=== PATIENT | male | born 1975 | race Caucasian/White ===

== ENCOUNTER 2018-09-29 13:53 | Outpatient (CLI) | payer OTHER ==
[2018-09-29 14:28] VITALS: BP 110/60
--- NOTE | 2018-09-29 14:28 | CONSULTATION NOTE ---
Information from patient questionnaire entered by Lacie Zamora. I have reviewed and concur with the information entered by Lacie Zamora. This document represents the service I personally performed and the decisions made by me, Celso Espinoza MD, [facility]. - History of Present Illness Chief Complaint: Snoring, Excessive daytime sleepiness, Fatigue I had the pleasure of seeing SULEMA THEODORE today regarding the possibility of him having a sleep disorder. His current complaints are snore and excessive daytime sleepiness for the past 4 - 5 years. The patient tells me that he normally goes to bed around 9:00 pm, and it takes him approximately 120 minutes to fall asleep. He has been told that he snores loudly and irregularly at night. He has been observed to stop breathing in his sleep. His bed partner can still sleep in the same bed. He can recall waking up on the average of 1 times during the night. Most of the time he wakes up because of having to use the restroom or disomfort. There is sometimes tossing and turning in his sleep. Generally there is no recollection of dreams. He usually wakes up at 4:40am (8 am on weekends) and does not feel refreshed. He usually does not have a morning headache. During the day he complains of feeling sleepy and fatigued. He has never fallen asleep while driving nor has any accident due to sleepiness. He tries not to nap during the day. If he naps, upon falling asleep during the day he denies having vivid dreams. There is no somniloquy (sleep talking) or somnambulism (sleep walking). He [reports][denies] having impaired concentration during the day. [place] Sleepiness Scale Score: 6 - Past Medical History Past Medical History: Other (high cholesterol) - Allergies/Home Medications Allergies and home medications reviewed: Yes - Social History The patient's occupation is a [employer]. Patient is and lives in [place]. Smoked in the past 12 months: Yes Cigarettes per day (20/pack): 10 Years of smokin Quit Date: 03/2018 Smoking Pack Years: 7.5 Alcohol use: Yes Amount and frequency: 3 drinks on weekends Caffeine use: Yes Amount and frequency: 6-8 drinks/day - Family History Family history of sleep disordered breathing: Yes Family Hx Sleep Apnea: Mother: Snoring, Father: Sleep apnea - Treated - Review of Systems Weight gain over past 5 years: 15 Weight loss over past 5 years: 15 Cardiovascular: denies: high blood pressure, palpitations, chest pain, irregular heart rate or pulse, leg or foot swelling, have to sleep sitting up, other: Respiratory: denies: shortness of breath, wheeze, sputum production, chronic cough, other: Gastrointestinal: denies: heartburn, difficulty swallowing, nausea, vomitting, diarrhea, abdominal pain, other: Urinary: denies: incontinence, frequency, urgency, impotence, other: Neurological: denies: headaches, seizure, head trauma, disorientation, speech dysfunction, gait or balance problems, fainting or unconsciousness, other: Psychiatric: denies: Attention Deficit Hyperactivity, anxiety, depression, mood disorder, claustrophobia, other: Ear/Nose/Throat: reports: nasal congestion, sinus problems, wisdom teeth removed Endocrine: denies: thyroid disease, history of goiter, sluggishness, too hot or cold, excessive thirst, increased appetite, increased urination, unexplained weakness, other: Musculoskeletal: denies: joint pain, neck pain, back pain, joint swelling, muscle pain or cramping, mobility problems, other: Immunologic: denies: sneezing, rash, itching, allergies to food or environment, other: - Physical Examination Vital signs obtained and documented by: Dr. Espinoza Blood Pressure: 110/60 Cuff size: long Heart Rate: 74 O2 Saturation: 97 Height: 5 ft 10 in Weight (kg): 99.798 kg Body Mass Index: 31.6 BMI Classification: Class 1 Neck circumference: 16.25 Mood/affect: normal HEENT: No craniofacial malformation Nostrils: patent to airflow Turbinates: normal Septum: midline Mouth and throat: narrow oropharynx (Mallampati Class II) Soft palate: long Hard palate: normal Uvula: normal Tongue: enlarged in size with teeth fam on lateral edges Tonsils: small Chin and jaw: normal size and position Neck: normal w/o lymphadenopathy or thyromegaly Heart: regular rate and rhythm Lungs: clear bilaterally Abdomen: soft, non-tender Extremities: no edema or clubbing Neurologic: intact, no focal deficits - Impression 1. Suspected Obstructive Sleep Apnea-Hypopnea Syndrome, as suggested by a history of loud and irregular snoring, observed cessation of breath while asleep, gasping or choking in sleep, unrefreshed sleep, cognitive impairment, and excessive daytime sleepiness. Narrow oropharynx and obesity are common predisposing factors for obstructive sleep apnea-hypopnea syndrome. I recommend proceeding to polysomnography to confirm the diagnosis and to assess severity. If the patient has significant sleep disordered breathing, a manual CPAP titration study will also be performed to find the optimal treatment pressure. I informed the patient of what the sleep studies involve and after some di scussion, obtained agreement to proceed. The pathophysiology of obstructive sleep apnea-hypopnea syndrome was discussed with the patient and health risks of cardiovascular and cerebrovascular disease if not treated. 2. 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 His true circadian rhythm is that of the weekends where he goes to bed near midnight and gets up at 8 am. Therefore, trying to go to bed early at 9 pm on week nights causes him to lie awake for 2 hours. By the time he has to get up at 4:40 am, he would only have 5:40 hours of sleep. The solution is to keep a regular wake time which the patient says he is not going to do (cannot really blame him for not wanting to get up at 4:40 am on the weekends). - Plan Schedule polysomnography +/- manual CPAP titration study. Avoid long distance driving or driving when feeling sleepy. Avoid alcohol, sedative and muscle relaxant around bedtime. Attempt to lose weight. Review instructions provided by trained office staff on how to prepare for the sleep study. Return for follow-up after sleep study completed. I spent 100% of this 15 minute visit face to face with the patient with greater than 50% of this was spent time counseling the patient and coordination of care.
== END 2018-09-29 13:54 | disposition home or self-care (01) ==
LOC: SC 13:53
PROVIDERS: ATTEND Internal Medicine Pulmonary Disease
DX: R06.83 Snoring (principal); R06.81 Apnea, not elsewhere classified; G47.8 Other sleep disorders; R41.89 Other symptoms and signs involving cognitive functions and awareness; G47.10 Hypersomnia, unspecified; G47.21 Circadian rhythm sleep disorder, delayed sleep phase type
CPT/HCPCS: 99203; 99212

== ENCOUNTER 2018-10-21 19:12 | Outpatient (CLI) | payer OTHER | END 2018-10-21 19:13 | disposition home or self-care (01) | LOC: SC 19:12 | PROVIDERS: ATTEND Internal Medicine Pulmonary Disease | DX: G47.33 Obstructive sleep apnea (adult) (pediatric) (principal); G47.61 Periodic limb movement disorder | CPT/HCPCS: 95811 ==

== ENCOUNTER 2018-11-24 09:51 | Outpatient (CLI) | payer OTHER ==
--- NOTE | 2018-11-24 10:36 | SLEEP CARE CONSULTATION ---
Information from patient questionnaire entered by Lacie Zamora. I have reviewed and concur with the information entered by Lacie Zamora. This document represents the service I personally performed and the decisions made by me, Celso Espinoza MD, [facility]. History of Present Illness Initial [place] Sleepiness Scale score: 6 Current [place] Sleepiness Scale score: 8 Additional HPI information: HPI: Mr. Herman returned for follow up of the split-night sleep study he had on 10/21/2018. The polysomnography shows the following: The quality of the study is good. CPAP was initiated 162.8 minutes into the study and titrated up from 5 cmH2O and titrated up to CPAP at 13 cmH2O. DIAGNOSTIC: The patient had normal sleep efficiency. The sleep architecture was abnormal for sleep fragmentation and reduced amount of time spent in REM sleep. Respiratory monitoring showed severe obstructive sleep apnea-hypopnea (AHI = 57.2) associated with frequent arousals, oxyhemoglobin desaturation and moderate hypoxia (angie oxygen saturation of 72%). The respiratory events occurred mainly during supine sleep. Snoring was loud in intensity. There was no significant periodic limb movement of sleep. THERAPEUTIC: CPAP at 12 cmH2O appeared to be optimal (AHI of 1,8 per hour on the pressure). There was supine REM sleep on the pressure. Oxygen saturation was minimally low. Lower CPAP settings appeared adequate as well.. The patient tolerated positive airway pressure therapy well. The patients sleep efficiency was slightly reduced due to frequent awakenings at the beginning of the treatment. The sleep architecture was otherwise normal. There was mild periodic limb movement of sleep not associated with sleep fragmentation. Cardiac rhythm was normal sinus rhythm without significant arrhythmia. No abnormal behavior (parasomnia) observed during the night. The patient was informed of these findings. I explained to him the pathophysiology behind obstructive sleep apnea. We then spent quite a bit of time discussing different treatment options. For mild obstructive sleep apnea, surgery and oral appliance are alternatives to nasal CPAP therapy but in moderate or severe cases, nasal CPAP is the most effective and reliable treatment. Weight loss in an obese individual is strongly recommended. After some discussion, he opted to go with the nasal CPAP therapy. I explained to him how CPAP machine works and what to expect when using the machine. He is encouraged to use CPAP every night especially in the first 2 to 3 nights in order to get used to it. He should call his CPAP supplier or me to discuss any mechanical problem that may occur. If he snores or feels like he is not getting enough air from the machine, he should notify me and I will increase the pressure. Allergies and Home Medications Drug allergies reviewed: Yes Home medication list reviewed: Yes Review of Systems Review of systems same as previous: Yes Physical Exam Weight: 220 lb Impression and Plan IMPRESSION: 1. Obstructive Sleep Apnea-Hypopnea Syndrome, severe, associated with moderate hypoxemia and sleep fragmentation. Obviously this is the cause of the patients symptoms of unrefreshed sleep, and excessive daytime sleepiness. As mentioned above, the patient will be started on autoCPAP set at 8 - 12 cmH2O. I anticipate good treatment compliance. PLAN: 1. Prescription made for an autoCPAP, heated humidifier, and related supplies. 2. Attempt to lose weight and avoid alcohol consumption near bedtime. 3. The patient is again cautioned about driving until his sleepiness completely resolves on the CPAP therapy. 4. Return in six weeks for follow up. I will assess his response and compliance at that time. I spent 100% of the 20 minute visit [id number] with the patient with greater than 50% of this was spent time counseling the patient and coordination of care.
== END 2018-11-24 09:52 | disposition home or self-care (01) ==
LOC: SC 09:51
PROVIDERS: ATTEND Internal Medicine Pulmonary Disease
DX: G47.33 Obstructive sleep apnea (adult) (pediatric) (principal)
CPT/HCPCS: 99212; 99213

== ENCOUNTER 2019-03-22 12:44 | Outpatient (CLI) | payer OTHER ==
--- NOTE | 2019-03-22 13:19 | SLEEP CARE CONSULTATION ---
Information from patient questionnaire entered by Lacie Zamora. I have reviewed and concur with the information entered by Lacie Zamora. This document represents the service I personally performed and the decisions made by me, Celso Espinoza MD, [facility]. History of Present Illness Previous diagnosis: Severe, Obstructive Sleep Apnea-Hypopnea Syndrome AHI: 57.2 Reason for follow up: first compliance Equipment type: CPAP Prior sleep studies: Yes Year and Where: 2018 [facility] HPI additional information: HPI: Mr. Herman returned today for follow up of nasal CPAP therapy. He was diagnosed to have very severe obstructive sleep apnea-hypopnea syndrome. The patient wears a Respironics DreamWear nasal cushion mask (he recently switched from a full face mask). He reports using the device nightly and all through the night. The compliance report shows usage in 26 nights out of the past 30 nights, averaging 5.1 hours a night. The > 4 hour compliance rate for 12/3001/28/19 is 70%. He complained of dryness. He thinks that the pressure of 8 12 cmH2O is comfortable. On the CPAP therapy he notices improvement in his sleep quality, and that he wakes up feeling fresher in the morning and more awake/alert during the day. His [place] Sleepiness Scale score is 2 (was 6). His notices no snore at all. The average residual AHI is 1.9; and average time in large leak per day is 4 minutes. The 90th percentile pressure is 9.8 cmH2O. CPAP Compliance Data - Data Reviewed with Patient Average duration of nightly device use: 5h 8m Compliance rate %: 70 Current pressure setting (cmH2O): 8-12 Humidity settin Heated hose settin Average residual AHI: 3.5 Average large leak: 44m 35s Subjective Patient concerns: reports: dry mouth, nose, throat Current pressure setting perceived as: comfortable Initial [place] Sleepiness Scale score: 6 Current [place] Sleepiness Scale score: 2 Allergies and Home Medications Drug allergies reviewed: Yes Home medication list reviewed: Yes (Zocor, Viagra) Review of Systems Review of systems same as previous: Yes Physical Exam Height: 5 ft 10 in Weight: 222 lb Weight change since last visit: +4 Body Mass Index: 31.8 BMI Classification: Obesity Class 1 Impression and Plan IMPRESSION: 1. Obstructive Sleep Apnea-Hypopnea Syndrome, very severe (AHI was 57.2) with the patient doing well on nasal CPAP therapy. He has good compliance and significant clinical improvement. The current pressure appears effective and comfortable. The Respironics DreamWear nasal cushion mask fits well. Overall, he is very satisfied with treatment and plans to continue with it long-term. No adjustment is necessary today. PLAN: 1. Continue with autoCPAP set at 8 - 12 cmH2O. 2. Try to lose weight 3. Try ResMed N30i mask. 4. Return in one year for follow up or earlier if there is any problem with the treatment. I spent 100% of this visit face to face with the patient with greater than 50% of this was spent time counseling the patient and coordination of care.
== END 2019-03-22 12:45 | disposition home or self-care (01) ==
LOC: SC 12:44
PROVIDERS: ATTEND Internal Medicine Pulmonary Disease
DX: G47.33 Obstructive sleep apnea (adult) (pediatric) (principal); E66.9 Obesity, unspecified; Z68.31 Body mass index [BMI] 31.0-31.9, adult
CPT/HCPCS: 99212; 99213

== ENCOUNTER 2019-03-22 16:24 | Outpatient (CLI) | payer OTHER | END 2019-03-22 16:25 | disposition critical access hospital (66) | LOC: EMS 16:24 | PROVIDERS: ATTEND Surgery | DX: S81.032A Puncture wound without foreign body, left knee, initial encounter (principal); W32.0XXA Accidental handgun discharge, initial encounter; Y92.008 Other place in unspecified non-institutional (private) residence as the place of occurrence of the external cause | CPT/HCPCS: A0425; A0427 ==

== ENCOUNTER 2019-03-22 16:48 | Emergency (ER) | payer OTHER ==
[2019-03-22] MEDS ORDERED: ceFAZolin 1 GM in SODIUM CHLORIDE 0.9% MINIBAG 100 ML IV STA (17:09)
[2019-03-22] MEDS ORDERED: HYDROmorphone 2 MG/ML VIAL IVP STA (17:09)
[2019-03-22] MEDS ORDERED: SODIUM CHLORIDE 0.9% 1,000 ML IV ONE (17:09)
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
[2019-03-22 17:18] LABS: BASOPHILS # (AUTO) 0.1 10^3/uL (0.0-0.1); BASOPHILS % (AUTO) 0.8 %; EOSINOPHILS # (AUTO) 0.1 10^3/uL (0.0-0.7); EOSINOPHILS % (AUTO) 1.5 %; HGB - HEMOGLOBIN 13.7 g/dL (14.0-18.0); LYMPHOCYTES # (AUTO) 1.8 10^3/uL (1.5-3.5); LYMPHOCYTES % (AUTO) 30.7 %; MEAN CORPUSCULAR HEMOGLOBIN 30.2 pg (27.0-31.0); MEAN CORPUSCULAR HGB CONC 34.3 g/dL (32.0-36.0); MEAN CORPUSCULAR VOLUME 88.3 fL (80.0-94.0); MEAN PLATELET VOLUME 9.1 fL (7.4-11.4); MONOCYTES # (AUTO) 0.6 10^3/uL (0.0-1.0); MONOCYTES % (AUTO) 9.7 %; NEUTROPHILS # (AUTO) 3.4 10^3/uL (1.5-6.6); PLT - PLATELET COUNT 243 10^3/uL (130-450); RED BLOOD COUNT 4.53 10^6/uL (4.70-6.10); RED CELL DISTRIBUTION WIDTH 11.6 % (12.0-15.0)
[2019-03-22 17:34] LABS: ALBUMIN 4.5 g/dL (3.2-5.5); ALBUMIN/GLOBULIN RATIO 1.6 (1.0-2.2); BILIRUBIN,TOTAL 0.5 mg/dL (0.2-1.0); CALCIUM 9.2 mg/dL (8.5-10.3); CREATININE 0.9 mg/dL (0.6-1.2); TOTAL PROTEIN 7.4 g/dL (6.7-8.2)
[2019-03-22] MEDS ORDERED: HYDROmorphone 1 MG/ML CARPUJECT IVP STA ×4 (17:50→21:51)
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
[2019-03-22] MEDS ORDERED: BUPIVACAINE 0.25% PF 30 ML VIAL ONE (19:38)
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
[2019-03-22] MEDS ORDERED: HYDROmorphone 1 MG/ML CARPUJECT ONE (21:09)
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
[2019-03-22 22:33] VITALS: BP 121/77
== END 2019-03-22 22:34 | disposition short-term general hospital (02) ==
LOC: EDUNIT# → ED 16:48 → SDS 19:00 → ED 22:34
DX: S82.042B Displaced comminuted fracture of left patella, initial encounter for open fracture type I or II (principal); W32.0XXA Accidental handgun discharge, initial encounter; Y93.89 Activity, other specified; Y92.009 Unspecified place in unspecified non-institutional (private) residence as the place of occurrence of the external cause
CPT/HCPCS: 36415; 73552; 80053; 83690; 85025; 99285; J1170

== ENCOUNTER 2019-03-22 22:39 | Outpatient (CLI) | payer OTHER | END 2019-03-22 22:40 | disposition short-term general hospital (02) | LOC: EMS 22:39 | PROVIDERS: ATTEND Surgery | DX: S82.002B Unspecified fracture of left patella, initial encounter for open fracture type I or II (principal); W32.0XXA Accidental handgun discharge, initial encounter | CPT/HCPCS: A0425; A0426 ==

== ENCOUNTER 2020-03-17 14:19 | Outpatient (CLI) | payer OTHER ==
--- NOTE | 2020-03-17 14:42 | SLEEP CARE CONSULTATION ---
Information from patient questionnaire entered by Marquita Bustamante. I have reviewed and concur with the information entered by Marquita Bustamante. This document represents the service I personally performed and the decisions made by , Renate Stanley ARNP. History of Present Illness Service Date and Time: 03/17/2020 1419 Previous diagnosis: Severe, Obstructive Sleep Apnea-Hypopnea Syndrome AHI: 57.2 Reason for follow up: annual Equipment type: CPAP Equipment obtained from: [employer] (getting supplies as needed) Mask style: Nasal Backup mask available: Yes (other mask) Last cushion change: last week Prior sleep studies: Yes Year and Where: 2018 [facility] additional information: SULEMA THEODORE was diagnosed to have severe, AHI 57.2, obstructive sleep apnea- hypopnea syndrome and returned today for CPAP therapy annual follow-up. CPAP Compliance Data - Data Reviewed with Patient Average duration of nightly device use: 5 h 24 min Compliance rate %: 68.9 Current pressure setting (cmH2O): 8-12 Humidity settin Heated hose settin Average residual AHI: 2.7 Average large leak: 13 min 43 sec Subjective Missed days of use due to: reports: other (New puppy) Patient concerns: denies: aerophagia, mask discomfort, air blowing in eyes, mask leak noise, condensation in mask/hose, nasal congestion, dry mouth, nose, throat, epistaxis, other Observed to snore while using device: No Current pressure setting perceived as: comfortable (but sometimes the it feels too low at onset of pressure) On therapy, patient: reports: sleeping better, awakening more refreshed, being more awake and alert during the day, more rested overall. denies: drowsiness while driving Initial [place] Sleepiness Scale score: 6 (in 2019) Current [place] Sleepiness Scale score: 2 Allergies and Home Medications Drug allergies reviewed: Yes (NKDA) Home medication list reviewed: Yes (no changes) Review of Systems Review of systems same as previous: Yes (no changes) Physical Exam Heart Rate: 69 O2 Saturation: 98 Height: 5 ft 10 in Weight: 220 lb Weight change since last visit: 2 Body Mass Index: 31.5 BMI Classification: Obese Impression and Plan 1. Obstructive Sleep Apnea-Hypopnea Syndrome, severe, with fair treatment compliance and good apnea control. On CPAP therapy, the patient has better sleep quality and is more rested overall. He has no complaints with the use of the mask. He has a new puppy that has been affecting his ability to wear his CPAP. He is trying to wear his mask as much as possible otherwise. He was encouraged to wear as able while puppy adjusts to new home. He does feel that at onset of night the pressure feels a little low. I will adjust it up to 9-12 cmH2O to help reduce this low pressure feeling. He will call if the pressure feel too much, too low or he experienced aerophagia. Patient's apnea severity and rationale for treatment to reduce apnea, improve sleep quality and reduce cardiovascular and cerebrovascular events was reviewed. * Change auto CPAP pressure to 9-12 cmH2O * Notify me if snoring with mask or feeling that the pressure is too much or too little * Attempt to lose weight * Call this office if any problems using CPAP * Return for follow up in 1 year, or sooner if concerns arise Counseling Topics: Spare mask, Weight loss health impact Visit Type: In Office Time Spent with Patient (minutes): 17 Provider Statement: I spent 100% of the Face to Face Visit with the patient with greater than 50% spent counseling the patient and coordination of care.
== END 2020-03-17 14:20 | disposition home or self-care (01) ==
LOC: SC 14:19
PROVIDERS: ATTEND Nurse Practitioner Family
DX: G47.33 Obstructive sleep apnea (adult) (pediatric) (principal); E66.9 Obesity, unspecified; Z68.31 Body mass index [BMI] 31.0-31.9, adult
CPT/HCPCS: 99212

== ENCOUNTER 2022-04-05 14:51 | Outpatient (CLI) | payer OTHER ==
[2022-04-05 15:13] VITALS: BP 112/72
--- NOTE | 2022-04-05 15:13 | SLEEP CARE CONSULTATION ---
Information from patient questionnaire entered by Gisela Ayala. I have reviewed and concur with the information entered by Gisela Ayala. This document represents the service I personally performed and the decisions made by me, Renate Stanley ARNP. History of Present Illness Service Date and Time: 04/05/2022 1451 Previous diagnosis: Severe, Obstructive Sleep Apnea-Hypopnea Syndrome AHI: 57.2 Reason for follow up: annual (LAST SEEN 02/2020) Equipment type: CPAP (Zay Dreamstation recertified) Equipment obtained from: [employer] (getting supplies as needed) Mask style: Nasal Mask brand: Resmed ([id number]) Backup mask available: No (will keep old mask when replaced) Last cushion change: 6 weeks Prior sleep studies: Yes Year and Where: [address] [facility] additional information: SULEMA THEODORE was diagnosed to have severe, AHI 57.2, obstructive sleep apnea- hypopnea syndrome and returned today for CPAP therapy annual follow-up. Sleep Study - Results Prior sleep studies: Yes Year and Where: 2018 [facility] CPAP Compliance Data - Data Reviewed with Patient Average duration of nightly device use: 6 HRS 39 MIN 43SEC Compliance rate %: 92.2 (166/180 days used) Current pressure setting (cmH2O): 9-12 Average residual AHI: 0.9 Central apnea: 0.1 Obstructive apnea: 0.3 Average large leak: 24 mins 42 secs Subjective Missed days of use due to: reports: travel Patient concerns: denies: aerophagia, mask discomfort, air blowing in eyes, mask leak noise, condensation in mask/hose, nasal congestion, dry mouth, nose, throat (dry mouth when water runs out), epistaxis Observed to snore while using device: No Current pressure setting perceived as: comfortable On therapy, patient: reports: sleeping better, awakening more refreshed, being more awake and alert during the day, more rested overall. denies: drowsiness while driving Initial [place] Sleepiness Scale score: 6 (in 2019) Current [place] Sleepiness Scale score: 0 (04/05/22) Allergies and Home Medications Drug allergies reviewed: Yes (NKDA) Home medication list reviewed: Yes (no changes) Review of Systems Review of systems same as previous: Yes (no changes) Physical Exam Vital signs obtained and entered by: GISELA C, MA Blood Pressure: 112/72 (LEFT ARM) Cuff size: regular Heart Rate: 73 O2 Saturation: 96 Height: 5 ft 10 in Weight: 228 lb Body Mass Index: 32.7 BMI Classification: Obese Impression and Plan 1. Obstructive Sleep Apnea-Hypopnea Syndrome, severe, with good treatment compliance and good apnea control. On CPAP therapy, the patient has better sleep quality and is more rested overall. Patient has significant improvement of their sleep apnea and are satisfied with current CPAP therapy. Patient denies problems with oral dryness, nasal congestion, epistaxis, skin irritation or aerophagia. Patient's apnea severity and rationale for treatment to reduce apnea, improve sleep quality and reduce cardiovascular and cerebrovascular events was reviewed. 2. Obesity, unspecified. Currently patients BMI is 32.7. He states he has been losing weight recently because he is watching what he eats and controlling portions. Obesity increases the risk of apnea, CPAP pressure requirements and overall health risks especially cardiovascular and diabetes. Thus patient is advised to continue to try to lose weight. * Continue auto CPAP pressure at 9-12 cmH2O * Update supplies * Notify me if snoring with mask or feeling that the pressure is too much or too little * Attempt to lose weight * Call this office if any problems using CPAP * Return for follow up in 1 year, or sooner if concerns arise Counseling Topics: Spare mask, Weight loss health impact Visit Type: In Office Time Spent with Patient (minutes): 20 Provider Statement: I spent 100% of the Face to Face Visit with the patient with greater than 50% spent counseling the patient and coordination of care.
== END 2022-04-05 14:52 | disposition home or self-care (01) ==
LOC: SC 14:51
PROVIDERS: ATTEND Nurse Practitioner Family
DX: G47.33 Obstructive sleep apnea (adult) (pediatric) (principal); E66.9 Obesity, unspecified; Z68.32 Body mass index [BMI] 32.0-32.9, adult
CPT/HCPCS: 99212; 99213

== ENCOUNTER 2023-09-19 14:17 | Outpatient (CLI) | payer OTHER ==
--- NOTE | 2023-09-19 14:52 | Sleep Patient Instructions ---
Sleep Center Visit Summary - Patient Visit Information Reason for Visit: Annual Follow up - Patient Instructions Additional Instructions: You will continue with CPAP therapy with pressure changed to 10-12 cmH2O. A supply prescription will be updated with your DME. We encourage you to continue to try to lose weight. Please follow up with the sleep care office in 1 year. - Clinic Information Contact: [facility] [address] [place] [address] [email or web address] T: [phone]
--- NOTE | 2023-09-19 14:55 | SLEEP CARE CONSULTATION ---
Information from patient questionnaire entered by Gisela Ayala. I have reviewed and concur with the information entered by Gisela Ayala. This document represents the service I personally performed and the decisions made by me, Renate Stanley ARNP. History of Present Illness Service Date and Time: 09/19/2023 1417 Previous diagnosis: Severe, Obstructive Sleep Apnea-Hypopnea Syndrome AHI: 57.2 (10/21/2018) Reason for follow up: annual (LAST SEEN 03/2022) Equipment type: CPAP (Zay Dreamstation recertified) Equipment obtained from: [employer] (getting supplies as needed) Mask style: Nasal Backup mask available: No Last cushion change: 6 weeks Prior sleep studies: Yes Year and Where: 2018 [facility] HPI additional information: SULEMA THEODORE was diagnosed to have severe, AHI 57.2, obstructive sleep apnea- hypopnea syndrome and returned today for CPAP therapy annual follow-up. Sleep Study - Results Prior sleep studies: Yes Year and Where: 2018 [facility] CPAP Compliance Data - Data Reviewed with Patient Average duration of nightly device use: 6 HRS 19 MINS Compliance rate %: 88.8 (09/17/22-09/16/23; 343-365 days used) Current pressure setting (cmH2O): 9-12 (avg 9.9, max 10.4) Average residual AHI: 1.1 Central apnea: 0.1 Obstructive apnea: 0.4 Hypopnea: 0.6 Average large leak: 21 mins 46 secs Subjective Missed days of use due to: reports: travel Patient concerns: reports: dry mouth, nose, throat (occasional). denies: aerophagia, mask discomfort, air blowing in eyes, mask leak noise, nasal congestion, epistaxis Observed to snore while using device: No Current pressure setting perceived as: comfortable (AND TOO LOW) On therapy, patient: reports: sleeping better, awakening more refreshed, being more awake and alert during the day, more rested overall. denies: drowsiness while driving Initial [place] Sleepiness Scale score: 6 (in 2019) Current [place] Sleepiness Scale score: 4 (09/19/23) Allergies and Home Medications Known drug allergies: No Drug allergies reviewed: Yes Home medication list reviewed: Yes (no changes) Allergy and home medication list: Allergies No Known Drug Allergies Allergy (Verified 09/19/23 14:27) Home Medications No Known Home Medications 09/19/23 [History Confirmed 09/19/23] Review of Systems Review of systems same as previous: Yes (NO CHANGE) Physical Exam Vital signs obtained and entered by: GISELA Clay MA Blood Pressure: 135/84 (RIGHT ARM) Cuff size: regular Heart Rate: 82 O2 Saturation: 97 Height: 5 ft 10 in Weight: 232 lb 6.4 oz Weight change since last visit: 4 lb gain Body Mass Index: 33.3 BMI Classification: Obese Impression and Plan 1. Obstructive Sleep Apnea-Hypopnea Syndrome, severe, with good treatment compliance and good apnea control. On CPAP therapy, the patient has better sleep quality and is more rested overall. He feels the pressure may be a little low. His average pressure used is 9.9 cmH2O. His ramp pressure is at 9 cmH2O. The patients pressure will be changed to autoCPAP 10-12 cmH20 for patient comfort. Patient advised to contact me if pressure change is uncomfortable so that it can be adjusted. Goals for apnea control discussed. Patient denies problems with oral dryness, nasal congestion, epistaxis, skin irritation or aerophagia. Patient's apnea severity and rationale for treatment to reduce apnea, improve sleep quality and reduce cardiovascular and cerebrovascular events was reviewed. 2. Obesity, unspecified. Currently patients BMI is 33.3. Obesity increases the risk of apnea, CPAP pressure requirements and overall health risks especially cardiovascular and diabetes. Thus patient is advised to lose weight. * Change auto CPAP pressure to 10-12 cmH2O * Update supply prescription. * Notify me if snoring with mask or feeling that the pressure is too much or too little * Attempt to lose weight * Call this office if any problems using CPAP * Return for follow up in 12 months, or sooner if concerns arise Adjust device pressure to (cmH2O): 10-12 Counseling Topics: Spare mask, Weight loss health impact Prescriptions: Device supplies Follow up with Sleep Care in: 1 year Visit Type: In Office Time Spent with Patient (minutes): 13 Provider Statement: I spent 100% of the Face to Face Visit with the patient with greater than 50% spent counseling the patient and coordination of care.
[2023-09-19 15:06] VITALS: BP 135/84; O2SAT 97
== END 2023-09-19 14:18 | disposition home or self-care (01) ==
LOC: SC 14:17
PROVIDERS: ATTEND Nurse Practitioner Family
DX: G47.33 Obstructive sleep apnea (adult) (pediatric) (principal); E66.9 Obesity, unspecified; Z68.33 Body mass index [BMI] 33.0-33.9, adult
CPT/HCPCS: 99212